=== PATIENT | male | born 1955 | race Caucasian/White ===

== ENCOUNTER 2020-09-07 11:08 | Outpatient (CLI) | payer MEDICARE, MEDICAID, SELFPAY | END 2020-09-07 11:09 | disposition home or self-care (01) | LOC: ANHCOVIDVC 11:08 | PROVIDERS: PCP Internal Medicine | DX: Z23 Encounter for immunization (principal) | CPT/HCPCS: 0001A; 91300 ==

== ENCOUNTER 2020-09-28 10:19 | Outpatient (CLI) | payer MEDICARE, MEDICAID, SELFPAY | END 2020-09-28 10:20 | disposition home or self-care (01) | LOC: ANHCOVIDVC 10:20 | PROVIDERS: PCP Internal Medicine | DX: Z23 Encounter for immunization (principal) | CPT/HCPCS: 0002A; 91300 ==